=== PATIENT | female | born 1940 | race Caucasian/White ===

== ENCOUNTER 2024-03-11 13:48 | Emergency (ER) | payer OTHER, SELFPAY ==
[2024-03-11 13:49] VITALS: BP 162/72
[2024-03-11 15:07] VITALS: BMI 40.7
[2024-03-11 15:10] VITALS: BP 154/59
--- NOTE | 2024-03-11 15:42 | ED.GENMED ---
History of Present Illness
General
Chief Complaint: Swelling
Time Seen by Provider: 03/11/24 14:52
Travel History
Have you had any contact with someone who has COVID-19?: No
Do you have any symptoms of coronavirus? Fever > 100 degrees, chills, cough, shortness of breath, sore throat, loss of taste or smell, muscle aches, or headache?: No
History of Present Illness
History of Present Illness:
83-year-old female with history of hypertension presenting to the emergency department for concern of left lower extremity swelling and pain. Patient reports for 2 weeks she has felt swelling from her knee down and in the past 2 days has had
increased pain on the plantar aspect of her foot. Denies any inciting injury or trauma. Denies any history of blood clots, recent surgery or recent travel. Reports that she had this issue in the past, was placed on a water pill with resolution of
symptoms. She is still on the water pill. Denies numbness or tingling. Denies any redness or warmth to the area. Reports that she has been having cold-like symptoms with cough and congestion, however saw her primary care doctor, was started on
amoxicillin with improvement of symptoms. Denies any significant dyspnea or chest pain. Denies abdominal pain or GI symptoms. Denies additional acute medical complaints
Phy Exam
Physical Exam
Physical Exam:
GENERAL: Alert , in no apparent distress
EYE: Extraocular movements intact
NECK: Supple, no significant adenopathy.
ENT: o/p clr, mmm.
CARDIAC: Regular rate and rhythm .
LUNGS: Clear breath sounds bilaterally, no acute respiratory distress, no wheezes/rales/rhonchi
ABDOMEN: Soft, without focal tenderness, no r/g, no cvat
NEUROLOGICAL: Alert and oriented, no focal neuro deficits
SKIN: Warm and dry, skin intact.
MUSCULOSKELETAL: No edema to the lower extremities. No asymmetry. No erythema or warmth. No palpable tenderness to the calf or to the foot. Distal pulses and sensation intact
PSYCH: Normal and appropriate interaction.
Scores
Heart Failure Risk
Heart Failure Risk Score: Not Applicable
Course
Orders/Labs/Results
Orders:
Orders
03/11/24 15:24
Foot, Left 3 View [CR Foot - Left Min 3 Views] Urgent
Comment:
Reason For Exam: pain plantar
US Periph Venous LOWER Ext LT Urgent
Comment:
Reason For Exam: swelling
Vital Signs
Initial and Last Documented VS:
Initial Vital Signs
Temp Pulse Resp BP Pulse Ox
99.5 F 76 18 162/72 94
03/11/24 13:49 03/11/24 13:49 03/11/24 13:49 03/11/24 13:49 03/11/24 13:49
Last Documented Vital Signs
Temp Pulse Resp BP Pulse Ox
99.5 F 70 18 150/64 98
03/11/24 13:49 03/11/24 17:45 03/11/24 17:45 03/11/24 17:45 03/11/24 17:45
MDM/Problems Addressed
MDM/Problems Addressed:
83-year-old female with history of hypertension presenting for left lower extremity swelling and pain for 2 weeks. Vital signs arrival significant for mild hypertension.
On exam, patient well-appearing, no acute distress or discomfort. Overall benign examination of the lower extremity. No appreciated swelling, no asymmetry. No rash or color changes. No neurovascular compromise with intact sensation and pulses.
No significant tenderness to the calf or to the foot. Patient reports that her pain is primarily in the heel and in the distal aspect of the plantar. Possible plantar fasciitis or musculoskeletal pain. Lower suspicion for DVT. No active cancer,
not bedridden, no calf swelling, entire leg not swollen, no localized tenderness along the deep venous system, no pitting edema, no recent immobilization, no previous history of DVT. Will screen with ultrasound imaging. Will also obtain x-ray
imaging of the foot. Patient declining pain medication at this time.
17:25- X-ray imaging within normal limits. Ultrasound without evidence of DVT. At this time continue to suspect musculoskeletal component to pain. Feel stable for discharge with supportive therapy. Advised ibuprofen. Return precautions
discussed and patient verbalized understanding
*Critical Care Note
Total Time (30-74mins, 75-104mins- exclusive of procedures): Not Applicable
ED Attending Note
-
Portions of this chart may have been created with voice recognition software.� Occasional wrong word or��sound alike� substitutions may have occurred due to the inherent limitations of voice recognition software.
Discharge Plan
Departure
Patient Disposition: Home (Routine Discharge)
Date of Disposition: 03/11/24
Time of Disposition: 17:25
Patient with high blood pressure during this ER visit?: Yes
Condition: Good
Discharge Problem:
Leg pain, left, Pain of plantar aspect of heel
Instructions: Dependent Edema (DC), Lower Extremity Muscle Strain, BLOOD PRESSURE
Referrals:
Brian Villegas, DO [Family Provider] -
Activity Restrictions/Additional Instructions:
Please follow-up with your primary care doctor. Return with any worsening pain, numbness or tingling to your leg, development of rash or redness, chest pain or difficulty breathing, weakness or lightheadedness or inability to ambulate
Interventions
Interventions:
*Risk Screen - Suicide Last Done: 03/11/24 13:54
*General Assessment Last Done: 03/11/24 13:54
*Neglect/Abuse Screening Last Done: 03/11/24 13:54
ED- Fall Risk Assessment Last Done: 03/11/24 17:45
*ED COVID-19 Vaccine History Last Done: 03/11/24 15:11
*Nursing Disposition Last Done: 03/11/24 17:45
ED- Cardiac Assessment Last Done: 03/11/24 15:12
ED- Pulmonary Assessment Last Done: 03/11/24 15:12
ED-Skin Assessment Last Done: 03/11/24 15:12
Discharge Date and Time
Discharge Date/Time: 03/11/24 17:35
Print Language: IRISH
[2024-03-11 17:45] VITALS: BP 150/64
== END 2024-03-11 17:35 | disposition home or self-care (01) ==
LOC: EMR 13:48
PROVIDERS: EMERGENCY PHYSICIAN Student in an Organized Health Care Education/Training Program; FAMILY PHYSICIAN Family Medicine
DX: M79.605 Pain in left leg (principal); M79.672 Pain in left foot; R60.0 Localized edema; R09.81 Nasal congestion; R05.9 Cough, unspecified; I10 Essential (primary) hypertension
CPT/HCPCS: 99284; 73630; 93971

== ENCOUNTER → 2024-04-21 13:42 | Outpatient (REF) | payer OTHER, SELFPAY | LOC: EMG 13:42 | PROVIDERS: ATTENDING PHYSICIAN Family Medicine | DX: R20.2 Paresthesia of skin (principal); R20.0 Anesthesia of skin | CPT/HCPCS: 95886; 95910 ==

== ENCOUNTER → 2024-05-12 13:01 | Outpatient (REF) | payer OTHER, SELFPAY | LOC: HWRCS 13:01 | PROVIDERS: ATTENDING PHYSICIAN Internal Medicine Cardiovascular Disease; FAMILY PHYSICIAN Family Medicine | DX: I10 Essential (primary) hypertension (principal); R01.1 Cardiac murmur, unspecified | CPT/HCPCS: 93306 ==

== ENCOUNTER → 2024-07-28 13:30 | Outpatient (REF) | payer OTHER, SELFPAY | LOC: HWRAD 13:30 | PROVIDERS: ATTENDING PHYSICIAN Family Medicine | DX: R91.1 Solitary pulmonary nodule (principal) | CPT/HCPCS: 71250 ==

== ENCOUNTER → 2025-03-02 13:04 | Outpatient (REF) | payer OTHER, SELFPAY | LOC: HWRAD 13:04 | PROVIDERS: ATTENDING PHYSICIAN Family Medicine | DX: R91.1 Solitary pulmonary nodule (principal) | CPT/HCPCS: 71250 ==

== ENCOUNTER → 2025-03-16 11:15 | Outpatient (REF) | payer OTHER, SELFPAY | LOC: HWRAD 11:15 | PROVIDERS: ATTENDING PHYSICIAN Family Medicine | DX: K76.9 Liver disease, unspecified (principal) | CPT/HCPCS: 76700 ==

== ENCOUNTER → 2025-03-25 12:10 | Outpatient (REF) | payer OTHER, SELFPAY | LOC: MRI 3T 12:10 | PROVIDERS: ATTENDING PHYSICIAN Family Medicine | DX: R16.0 Hepatomegaly, not elsewhere classified (principal) | CPT/HCPCS: 74183; A9575 ==

== ENCOUNTER → 2025-07-22 13:39 | Outpatient (REF) | payer OTHER, SELFPAY | LOC: HWRAD 13:39 | PROVIDERS: ATTENDING PHYSICIAN Family Medicine | DX: J41.1 Mucopurulent chronic bronchitis (principal); R01.1 Cardiac murmur, unspecified | CPT/HCPCS: 71046 ==